=== PATIENT | female | born 1980 | race Hispanic/Latino ===

== ENCOUNTER 2022-02-12 13:13 | Observation (INO) | payer OTHER ==
[~2022-02-12] VITALS: Ht 172.7 cm; Wt 80.6 kg
--- NOTE | 2022-02-12 20:01 | NUR ---
02/12/222000 Lizette Barraza 1954-PATIENT ARRIVED TO PACU ON 6L MASK NONAROUSABLE ORAL AIRWAY IN PLACE. RN DOING JAW THRUST TO MAINTAIN OPEN AIRWAY. SR. IVF INFUSING. DRESSINGS TO ABDOMEN CDI. 1999-PATIENT MAINTAINING OWN AIRWAY WITH ORAL AIRWAY IN PLACE. 6L MASK NONAROUSABLE 100%
--- NOTE | 2022-02-12 20:06 | CONS ---
[facility] [address], [place] [address] Signed DATE OF CONSULTATION: 02/12/2022 CHIEF COMPLAINT: Epigastric abdominal pain. HISTORY OF PRESENT ILLNESS: Onur is a 41-year-old female, otherwise healthy, who ate some breakfast around 08:00 a.m. She then developed epigastric abdominal pain and vomited 10 times throughout the day. She felt epigastric pain has been getting worse. She finally came to emergency room for evaluation. In the emergency room, she is tender in epigastric area. White count is up at 15,000 with negative liver function test and negative lipase. Beta-hCG is negative. COVID is pending. Ultrasound was performed and she does have stones and sludge, but the gallbladder wall and common bile duct are not particularly dilated or thickened. There is no pericholecystic fluid. She has been given some pain medication here in the ER with very little relief. I was therefore asked to see her as a general surgeon on-call. PAST MEDICAL HISTORY: Gestational diabetes. PAST SURGICAL HISTORY: . SOCIAL HISTORY: She does not smoke or drink. She has four children. Her daughter, Sandra is with her today and her , Pierre is with her at . They live in [place] and they prefer the [facility] and she prefers the [place]. She works in hotel housekeeping. She has four children. She does drive. FAMILY HISTORY: Her mother had diabetes. REVIEW OF SYSTEMS: Ten systems reviewed with the help of her daughter and and no new issues. ALLERGIES: None. MEDICATIONS: None. PHYSICAL EXAMINATION: VITAL SIGNS: Her blood pressure is 99/73, heart rate 62, respiratory rate is 20, Electronically Signed By: CURTIS GUERRERO MD 02/12/222005 PATIENT NAME: ONUR HERNANDEZ CONSULTATION DATE OF : 84 REPORT #: [id number] PHYSICIAN: CURTIS GUERRERO MD PCP: NO PRIMARY CARE PHYSICIAN REPORT IS CONFIDENTIAL AND NOT TO BE RELEASED WITHOUT AUTHORIZATION [facility] [address], [place] [address] Signed temperature is 100, and she is 100% on room air. She is 5 feet 8 inches, at 72 kg. GENERAL: Onur is a 41-year-old female, who generally appears healthy and at her stated age. I can see she is having some pain in the epigastric area. She does not appear jaundiced. Her and daughter in the room. LUNGS: Clear to auscultation bilaterally. HEART: Regular rate and rhythm without murmurs. ABDOMEN: Obese, soft and tender in the epigastric area. LABORATORY DATA: Her white blood count is 15, hemoglobin 13 neutrophils 88, platelets 223. Electrolytes unremarkable. BUN 9, creatinine 0.78. Total bilirubin 0.4, AST 16, ALT 31, alkaline phosphatase 80, albumin is 4.2, lipase 112. Beta-hCG negative. COVID is pending. Her glucose 140. RADIOGRAPHIC STUDIES: Ultrasound is reviewed and she has some stones and sludge in the gallbladder, but the common bile duct is not dilated and the gallbladder wall is not thickened. There is no pericholecystic fluid. ASSESSMENT/PLAN: Onur is a 41-year-old female with acute cholecystitis and cholelithiasis. I reviewed the above findings with Onur and her family. There was also the chance that she could have an issue with the stomach such as gastritis or ulcer. Although, the gallbladder seems much more likely. We have reviewed the location and function of the gallbladder. We reviewed laparoscopic versus open cholecystectomy, they understand the expected intraop and postop course, which we reviewed. There is risk including, but not limited to bleeding, infection, scarring, change in contour of the skin, damage to bowel damage to main bile duct, incisional hernias and other unforeseen comorbidities, such as a deep vein thrombosis, pulmonary embolism, heart attack, or stroke. They expressed understanding and wished to proceed. She has received Rocephin and Flagyl to speak along with Lovenox. They have expressed understanding, would like to proceed. Given this time at night, she will be standing overnight with re-assessment in the morning. Curtis Guerrero MD ALB/MODL /[id number] Electronically Signed By: CURTIS GUERRERO MD 02/12/222005 PATIENT NAME: ONUR HERNANDEZ CONSULTATION DATE OF : 84 REPORT #: [id number] PHYSICIAN: CURTIS GUERRERO MD PCP: NO PRIMARY CARE PHYSICIAN REPORT IS CONFIDENTIAL AND NOT TO BE RELEASED WITHOUT AUTHORIZATION [facility] [address] [place] [id number] Signed cc: Patient Chart Curtis Guerrero MD Copies: CURTIS GUERRERO MD ~ Electronically Signed By: CURTIS GUERRERO MD 02/12/22 2006 PATIENT NAME: ONUR HERNANDEZ CONSULTATION DATE OF : 84 REPORT #: [id number] PHYSICIAN: CURTIS GUERRERO MD PCP: NO PRIMARY CARE PHYSICIAN REPORT IS CONFIDENTIAL AND NOT TO BE RELEASED WITHOUT AUTHORIZATION
--- NOTE | 2022-02-12 22:31 | NUR ---
more awake, no further c/o feeling nauseated, HOB elevated, on room air, CPOX at bedside, scds in place, abd tender, torrey, lap sites intact. denies passing gas at this time. ice pack to abd. at bedside, feeding her jello, ice chips and fluids, tolerating very small bites and sips. call light at hands reach
--- NOTE | 2022-02-12 23:32 | NUR ---
awakes easily, c/o abd pain 5/10, medicated with Dilaudid 0.5mg IV, no c/o n/v. tolerated jello, ice chips and fluids. repositioned in bed. IVF infusing, scds inplace, ice to bad soft, denies passing gas, dressing in place. family at bedside
--- NOTE | 2022-02-13 00:42 | NUR ---
Pt awake, c/o feeling nauseated, medicated with Phenergan 12.5mg IV. Up to BR, voided large amounts of dark yellow urine, back to bed, tolerated well, repositioned in bed. Room air, and soft, GENOVEVA, R abd lap sites in place, intact. scds in place. hob elevated, has tolerated sips of fluids ice chips and jellp. pleasant and coop. all cares explained in Sudanese by this RN staed understanding, use of IS and hands on demonstrated X5, up to 600. temp 99.2 oral. 5 bedcovers removed, explained to pt. cont to observe, Family at bedside
--- NOTE | 2022-02-13 02:36 | NUR ---
RESTING, ROOM AIR, OPENS EYES EASILY, COOP WITH ASSESSMENT AND VITALS. ABD SOFT, TENDER LAP SITES INTACT. ABD FAINT GENOVEVA. DENIES PASSING GAS. SCDS IN PLACE, IVF INFUSING W/O PROBLEMS, IS AT BEDSIDE, AFEBRILE AT THIST BRITTANY 98.8 ORAL. CALL LIGHT AND FLUIDSA T BEDSIDE, FAMILY ROOMING IN
--- NOTE | 2022-02-13 04:00 | NUR ---
awake, c/o abd pain, medicated with norco 2 tabs, bites of jello. ice chips and fluids tolerating well, repositioned in bed, scds in place, ivf infusing w/o problems, post op cpox at bedside,s ats 100%. family at bedside
--- NOTE | 2022-02-13 06:03 | NUR ---
Pt has slept mos of this shift. On room air. R abd lap sites intact. and soft, tender, faint bowel tones. denies passing gas. Has tolerating full liquids, was medicated earlier on shift c/o dry heaving. medicated with Phenergan effective. CPOX post op , SCDS's. Up to BR, voided QS. medicated x2 Pt equatorial guinean speaking only, all cares explained and translated by this RN, rooming in
--- NOTE | 2022-02-13 06:04 | OR ---
[facility] [address] [place], [place] [address] Signed DATE OF OPERATION: 02/12/2022 SURGEON: Curtis Guerrero MD PREOPERATIVE DIAGNOSES: Acute cholecystitis and cholelithiasis. POSTOPERATIVE DIAGNOSES: Acute cholecystitis and cholelithiasis. PROCEDURE: Laparoscopic cholecystectomy with intraoperative cholangiogram. ESTIMATED BLOOD LOSS: 10 mL. FINDINGS: Onur indeed had some sludge and multiple small 2 and 3 mm stones in the gallbladder, down in the neck where it joins the cystic duct. The intraoperative cholangiogram was unremarkable. INDICATIONS: Onur is a 41-year-old female, who ate her breakfast this morning around 8 a.m. and then developed epigastric abdominal pain. It was unrelenting, was getting worse throughout the day. She vomited at least 10 times. She finally came to emergency room with her and her daughter. In the emergency room, she was tender in the epigastric area. She was requiring repeated doses of pain medication. White count was normal and LFTs were normal. Lipase was normal. Beta-hCG was negative and the COVID test was negative. Ultrasound showed no thickening of gallbladder wall and the common bile duct was not dilated. There was no pericholecystic fluid; however, she appeared to have sludge with some stones in her gallbladder. I have been asked to see her as a general surgeon on-call. I had met with Onur and her and daughter and we reviewed the above findings. We reviewed the location and function of the gallbladder. We reviewed laparoscopic versus open cholecystectomy. We reviewed the expected intraop and postop course. We reviewed the risks including, but not limited to bleeding, infection, scarring, change in contour of the skin, damage to bowel, damage to main bile duct, incisional hernias, and other unforeseen comorbidities. They had expressed understanding and wished to proceed. PROCEDURE IN DETAIL: Electronically Signed By: CURTIS GUERRERO MD 02/13/22 0604 PATIENT NAME: ONUR HERNANDEZ OPERATIVE REPORT DATE OF : 84 REPORT #: [id number] PHYSICIAN: CURTIS GUERRERO MD PCP: NO PRIMARY CARE PHYSICIAN REPORT IS CONFIDENTIAL AND NOT TO BE RELEASED WITHOUT AUTHORIZATION [facility] [address] [place], [place] [address] Signed Onur was taken into the operating room and placed in the supine position under general endotracheal tube anesthesia. She had been given Rocephin and Flagyl. She had been given heparin subcutaneously. She had been prepped and draped in the usual sterile fashion. All trocars were placed in usual positions under direct visualization of the camera without difficulty. The gallbladder was grasped and elevated in the right upper quadrant. We took pictures throughout for photodocumentation. She had some chronic adhesions of the transverse colon and the duodenum around the neck of the gallbladder. They were easily taken down mostly bluntly and with judicious cautery. We bluntly dissected out the triangle of [place] with our [place] dissector. We then passed our cholangiocatheter into the cystic duct. We had pushed the stones back up into the gallbladder itself and placed a clip. The intraoperative cholangiogram was performed. The contrast flowed quite nicely down in the duodenum without any resistance whatsoever. There were no filling defects. The proximal bile ducts were unremarkable. We then secured the cystic duct stump with a PDS Endoloop and 2 clips were placed on the cystic duct stump to andrew its location. The gallbladder was then removed from the gallbladder fossa with the help of the cautery. We placed 3 sequential clips up the cystic artery as we traveled up toward the liver. The gallbladder was then placed into an EndoCatch bag. We then used our laparoscopic suturing device to pass 0-Vicryl suture on either side of the fascia of the subxiphoid trocar site. This was tied down to close this fascia primarily. After this, all the trocars removed and all the gas was allowed to escape. The gallbladder was removed through the umbilical port. The gallbladder was passed off the table and photodocumentation was undertaken by our circulating nurse. We then closed the fascia of the supraumbilical trocar site with interrupted [id number] and simple 0-Vicryl sutures. Local anesthetic was injected into all trocar sites. Each trocar site was irrigated and suctioned out until clear. The skin and dermis of each trocar site were closed with interrupted 3-0 subcuticular Monocryl sutures. Dry gauze and tape were applied to all incisions. Onur was awakened from her anesthesia, extubated in the OR, and taken to recovery room in stable condition. Cutris Guerrero MD ALB/MODL /[id number] cc: [facility] Electronically Signed By: CURTIS GUERRERO MD 02/13/22 0604 PATIENT NAME: ONUR HERNANDEZ OPERATIVE REPORT DATE OF : 84 REPORT #: [id number] PHYSICIAN: CURTIS GUERRERO MD PCP: NO PRIMARY CARE PHYSICIAN REPORT IS CONFIDENTIAL AND NOT TO BE RELEASED WITHOUT AUTHORIZATION [address] [place], [place] [address] Signed Curtis Guerrero MD Copies: CURTIS GUERRERO MD ~ Electronically Signed By: CURTIS GUERRERO MD 02/13/22 0604 PATIENT NAME: ONUR HERNANDEZ OPERATIVE REPORT DATE OF : 84 REPORT #: [id number] PHYSICIAN: CURTIS GUERRERO MD PCP: NO PRIMARY CARE PHYSICIAN REPORT IS CONFIDENTIAL AND NOT TO BE RELEASED WITHOUT AUTHORIZATION
--- NOTE | 2022-02-13 06:11 | NUR ---
dR Peter IN ROOM, THIS RN TRANSLATING. PT COMFORTABLE, FAMILY ROOMING IN
--- NOTE | 2022-02-13 07:59 | NUR ---
PT RESTING EYES CLOSED AT TIME OF SHIFT REPORT, PRESENT IN THE ROOM SNORING SOFTLY. CALL LIGHT AND NEEDED ITEMS AT PT BEDSIDE
[2022-02-13] MEDS ORDERED: HYDROCODON-ACE1 EAC8 PO (08:45)
[2022-02-13] MEDS ORDERED: ADVIL200 MG PO (08:46)
--- NOTE | 2022-02-13 08:55 | NUR ---
DAUGHTER IS ON THE PHONE TO ASSIST PHARMACY WITH COMMUNICATION WITH PT.
--- NOTE | 2022-02-13 09:02 | NUR ---
PT EATS 50% OF MORNING MEAL NO C/O PAIN OR NAUSEA. DENIES NEEDS AT THIS TIME. REMAINS IN THE ROOM
--- NOTE | 2022-02-13 09:05 | NUR ---
MED REC COMPLETE
[2022-02-13] MEDS ORDERED: PROMETHAZINE HC25 M1 PO (09:09)
--- NOTE | 2022-02-13 09:14 | NUR ---
PT DAUGHTER PRESENT ON FACE TIME FOR DC INSTRUCTIONS.
--- NOTE | 2022-02-13 16:22 | DS ---
[facility] [address] [place], [place] [address] Signed ADMISSION DATE: 02/12/2022 DISCHARGE DATE: 02/13/2022 POSTOPERATIVE DIAGNOSES: 1. Acute cholecystitis, cholelithiasis. 2. Biliary colic. PROCEDURES: 1. Laparoscopic cholecystectomy with intraoperative cholangiogram. 2. Ultrasound of abdomen. HISTORY OF PRESENT ILLNESS: Onur is a 41-year-old female, who came in with one day of rather severe epigastric abdominal pain after eating her breakfast. The pain was getting worse throughout the day and she had vomited over 10 times. In the emergency room, her white count was elevated at 15,000, but the rest of her lab work was unremarkable. Ultrasound showed stones and sludge in the gallbladder. The gallbladder wall was not thickened. The common bile duct was not dilated. There was no pericholecystic fluid. She required multiple doses of narcotics in the ER to control her pain. I was therefore asked to see her in the emergency room as a general surgeon on-call. HOSPITAL COURSE: I met with Onur and her and her daughter in the emergency room. I reviewed the above findings with them along with the surgery. We took her to surgery directly from the emergency room for an uncomplicated laparoscopic cholecystectomy with intraoperative cholangiogram. The intraoperative cholangiogram was unremarkable. She indeed had some chronic inflammatory changes around the neck of the gallbladder. She had multiple small 2 and 3 mm stones in the neck of the gallbladder next to the cystic duct. We had to push them back into the gallbladder during the surgery. She has done well both intraop and postop. The epigastric pain and nausea are now resolved. She looks and feels much better this morning. Her is at the bedside. We reviewed the intraoperative findings with the help of our nurse who happens to be bilingual. I also brought them a brochure written in Filipino on the gallbladder. We went through page by page very carefully. When she comes to the office, I will have one written in Kiswahili. She told me her daughter is able to read Filipino. She has tolerated her full liquid diet. Her abdomen is benign. The incisions all are clean, dry, and intact. Given her progress and she is going to be discharged to home later this morning. DISCHARGE PLANS AND MEDICATIONS: Onur is going to be discharged to home with a prescription for [place] one tab p.o. q.6 hours p.r.n. for severe postoperative pain, dispense 30 tablets with no Electronically Signed By: CURTIS GUERRERO MD 02/13/22 1622 PATIENT NAME: ONUR HERNANDEZ DISCHARGE SUMMARY DATE OF : 84 REPORT #: [id number] PHYSICIAN: CURTIS GUERRERO MD PCP: NO PRIMARY CARE PHYSICIAN REPORT IS CONFIDENTIAL AND NOT TO BE RELEASED WITHOUT AUTHORIZATION [address] [address] Signed refills. She can supplement with Tylenol and ibuprofen p.r.n. for [id number] postoperative pain. This can be purchased [id number]. She will be given Phenergan 25 mg one tablet p.o. q.6 hours p.r.n. for nausea and vomiting. Dispense five tablets with one refill. She takes no home medications. She can perform her activities of daily living including walking up and down stairs and showering bathing as usual. She should not do any heavy pushing, pulling, or lifting over 20 pounds including her 3-year-old child. She cannot return to work currently. I will see her back in the office in 7 to 10 days for followup. She should not drive while on narcotics. I have reviewed this with Onur and her with the help of our nurse who is bilingual. They have expressed understanding, agreed to above plan. Curtis Guerrero MD ALB/MODL /[id number] cc: [facility] Curtis Guerrero MD Copies: CURTIS GUERRERO MD ~ Electronically Signed By: CURTIS GUERRERO MD 02/13/22 1622 PATIENT NAME: ONUR HERNANDEZ DISCHARGE SUMMARY DATE OF : 84 REPORT #: [id number] PHYSICIAN: CURTIS GUERRERO MD PCP: NO PRIMARY CARE PHYSICIAN REPORT IS CONFIDENTIAL AND NOT TO BE RELEASED WITHOUT AUTHORIZATION
== END 2022-02-13 10:45 | disposition home or self-care (01) ==
LOC: ED 13:13 → MS 13:15
PROVIDERS: ADMIT Colon & Rectal Surgery; ATTEND Colon & Rectal Surgery
DX: K80.66 Calculus of gallbladder and bile duct with acute and chronic cholecystitis without obstruction (principal)
CPT/HCPCS: 00790; 36415; 74300; 76705; 80053; 81001; 83690; 83735; 84100; 84703; 85025; 96361; 96374; 96375; 96376; 99285-25; A9270; C9113; C9803; J0696; J1100; J1170; J1644; J1885; J2405; J2550; J2704; J3010; J7040; J7121; Q9967; U0003

== ENCOUNTER 2024-08-20 13:34 | Emergency (ER) | payer OTHER ==
[~2024-08-20] VITALS: Ht 154.9 cm; Wt 72.6 kg
[~2024-08-20 13:34] MED LIST: ADVIL200 MG PO; HYDROCODON-ACE1 EAC8 PO; IBU600 MG PO; PROMETHAZINE HC25 M1 PO
[2024-08-20] MEDS ORDERED: TRULICITY3 MG/0.5 M SQ (13:41)
[2024-08-20] MEDS ORDERED: METFORMIN HCL500 MG PO (13:41)
[2024-08-20] MEDS ORDERED: ATORVASTATIN CA10 MG PO (13:42)
[2024-08-20] MEDS ORDERED: HYDROCODON-ACE1 EA10 PO (14:40)
[2024-08-20 14:52] VITALS: BP 102/85
== END 2024-08-20 14:52 | disposition home or self-care (01) ==
LOC: ED 13:34
DX: M79.671 Pain in right foot (principal); E11.9 Type 2 diabetes mellitus without complications; Z79.84 Long term (current) use of oral hypoglycemic drugs; Z79.899 Other long term (current) drug therapy
CPT/HCPCS: 99283